=== PATIENT | male | born 1980 | race Caucasian/White ===

== ENCOUNTER 2018-10-14 04:00 | Observation (INO) ==
[2018-10-14] MEDS ORDERED: *HR* Dextrose 50 % in Water (Syg) 50 ML SYRINGE IVP ONE ×2 (04:19→04:52)
[2018-10-14] MEDS ORDERED: 0.9 % Sodium Chloride 1,000 ML IVC ONE (04:19)
[2018-10-14 04:26] LABS: Basophils # 0.1 K/mcL (0.0-0.2); Basophils % 0.4 %; Eosinophils # 0.2 K/mcL (0.0-0.6); Eosinophils % 1.4 %; Hematocrit 40.1 % (37.5-50.1); Hemoglobin 13.9 g/dL (12.9-16.9); Immature Granulocytes % 0.4 % (0-4); Lymphocytes # 3.4 K/mcL (0.6-4.6); Lymphocytes % 24.5 %; Mean Corpuscular HGB Conc 34.7 g/dL (31.6-35.5); Mean Corpuscular Hemoglobin 31.1 pg (28.0-33.3); Mean Corpuscular Volume 89.7 fL (83.0-100.0); Mean Platelet Volume 8.8 fL (9.4-12.4); Monocytes # 1.2 K/mcL (0.0-1.3); Monocytes % 8.7 %; Platelet Count 274 K/mcL (140-400); Red Blood Count 4.47 M/mcL (4.19-5.50); Segmented Neutrophils % 64.6 %
[2018-10-14 04:29] LABS: Bilirubin,Urine Negative (Negative); Blood,Urine Trace-intact (Negative); Clarity,Urine Clear (Clear); Color,Urine Yellow (Yellow); Glucose,Urine (UA) 100 mg/dL (Normal); Ketones,Urine Negative (Negative); Leukocyte Esterase,Urine Negative (Negative); Nitrite,Urine Negative (Negative); PH,Urine 5.5 pH Units (5.0-8.0); Protein,Urine Negative (Neg-Trace); Urobilinogen,Urine Normal (Normal)
[2018-10-14 04:35] LABS: Prothrombin Time 11.2 Seconds (9.4-12.1)
[2018-10-14 04:37] LABS: Activated Partial Thrombo Time 29.8 Seconds (26.0-36.0)
[2018-10-14 04:42] LABS: Amphetamine Screen,Urine Positive ng/mL (Cutoff=1000); Barbiturate Screen,Urine Negative ng/mL (Cutoff=200); Benzodiazepines Screen,Urine Negative ng/mL (Cutoff=200); Cannabinoid Screen,Urine Negative ng/mL (Cutoff = 50); Cocaine Screen,Urine Negative ng/mL (Cutoff= 300); Opiate Screen,Urine Negative ng/mL (Cutoff=300); Phencyclidine Screen,Urine Negative ng/mL (Cutoff=25)
[2018-10-14 04:45] LABS: Alanine Aminotransferase 85 Units/L (7-52); Albumin 3.9 g/dL (3.5-5.7); Albumin/Globulin Ratio 1.4 (1.1-2.2); Alkaline Phosphatase 138 Units/L (34-104); Aspartate Amino Transferase 63 Units/L (13-39); BUN/Creatinine Ratio 10 (6-26); Bilirubin,Direct 0.2 mg/dL (0.0-0.2); Bilirubin,Indirect 0.6 mg/dL (0.0-1.2); Bilirubin,Total 0.8 mg/dL (0.3-1.0); Blood Urea Nitrogen 9 mg/dL (6-20); Carbon Dioxide 28 mEq/L (23-29); Chloride 103 mEq/L (98-107); Ethanol < 10 mg/dL (Less than 10); Globulin 2.7 g/dL (2.4-3.5); Glucose 92 mg/dL (70-105); Osmolality,Calculated 284 (280-300); Potassium 3.3 mEq/L (3.5-5.1); Sodium 138 mEq/L (136-145); Total Protein 6.6 g/dL (6.4-8.9); eGFR For Non-African Americans > 60 (> 60)
[2018-10-14 04:46] LABS: Troponin I < 0.03 ng/mL (< 0.04)
[2018-10-14 04:53] LABS: Amorphous Sediment,Urine Many (Few)
--- NOTE | 2018-10-14 05:20 | Emergency Department Note ---
Disposition Clinical Impression: Hypoglycemia associated with diabetes, Drug abuse Disposition: Admitted As Inpatient Condition: Fair Referrals: NONE,PCP [Primary Care Provider] - Forms: ED Satisfaction Letter General Adult HPI - General Chief complaint: ED Seizure Stated complaint: unresponsive Source: family Mode of arrival: private vehicle Limitations: altered mental status Nursing Notes Reviewed: Yes Vital Signs Reviewed: Yes - History of Present Illness HPI Narrative: Patient is brought to the ED by family in private vehicle unresponsive. They stated his sugar was bottoming out. He is insulin-dependent diabetic and wears an insulin pump. A state his last sugar check at home was 21 and they disconnected his insulin pump before rushing in to the ED. Patient's son states he picked him up for around 1:30 AM and he was acting strange and seemed to be falling asleep. They went to [facility] and he was slow while walking around. When they got home he had decreasing responsiveness they could not get him up. That is when they checked his sugar and then worsened to the ED. They are not aware of anything else going on with the patient. Patient arrives minimally responsive but breathing with a steady pulse. He is cool and diaphoretic. Pain Scale: 0 - Related Data Home Medications Medication Instructions Recorded Confirmed Insulin ASPART [NovoLOG] 0 unit SQ PRN PRN 04/28/16 10/14/18 Lisinopril [Zestril] 20 mg PO BID 04/28/16 10/14/18 Previous Rx's Medication Instructions Recorded Pen Needle, Diabetic [Comfort Ez] 1 each MC 5XD #100 dis.needle 06/05/16 Allergies Allergy/AdvReac Type Severity Reaction Status Date / Time No Known Allergies Allergy Verified 04/17/18 16:31 Limitations: ROS unobtainable due to patients medical condition Past Medical History - Past Medical History Medical history: Reports: asthma, diabetes, hypertension Surgical history: Reports: no surgical history Psychiatric history: Reports: no psych history - Social History Smoking Status: Current every day smoker Smokeless Tobacco Status: No Alcohol use: Reports: none Drug use: Reports: none Physical Exam - General Limitations: altered mental status General appearance: lethargic - Head Head exam: atraumatic, normocephalic, normal inspection - Eye Eye exam: Present: normal appearance, PERRL, EOMI - ENT ENT exam: normal exam, normal oropharynx, mucous membranes moist - Neck Neck exam: Present: normal inspection, full ROM, trachea midline - Chest Chest inspection: Present: normal inspection, symmetric chest wall rise - Respiratory Respiratory exam: Present: normal lung sounds bilaterally - Cardiovascular Cardiovascular exam: Present: regular rate, normal rhythm, normal heart sounds - Abdominal Exam Abdominal exam: Present: soft, Non-Tender. Absent: tenderness, distention, gua rding, rebound, rigidity - Extremities Exam Extremities exam: Present: normal inspection, full ROM, normal capillary refill. Absent: tenderness, pedal edema - Skin Skin exam: Present: intact, diaphoresis, pallor Course Course Narrative: Agent presents to the ED with report of a blood glucose of 21 at home and minimally responsive. IV access was obtained and he was neatly given an amp of D50. Fingerstick glucose obtained within 1-2 minutes after receiving D50 gave her reading of 276. 7 minutes later repeat glucose was 180. Patient started waking up and would follow commands a squeezing my hand but remained obtunded and shivering and would not answer questions. Heart rate was regular in the 70s but initial blood pressure was elevated. Initial physical exam is unremarkable other than his altered mentation. Laboratory studies were drawn, IV fluids were started and patient was catheterized for a urine sample. Presents blood sugar reading was 119. Patient began becoming more responsive started answering questions and being cooperative with physical exam. He repeatedly complained of feeling cold initially. He now also complains of some right flank pain. Pat leatha denies any abdominal pain, nausea, vomiting, diarrhea or constipation. He does report shortness of breath but denies any chest pain. He has not recently fallen or struck his head. On repeated questioning he denied any drug use. Does admit to not taking his blood pressure medicine in the past few days. States he is also not checked his sugar in the past few days. He states he cannot remember anything that happened earlier today. He does not recall going to work. Denies any history of seizures. - Reevaluation(s) Reevaluation #1: Urinalysis shows only trace blood and glucose. Urine drug screen is positive for oxycodone and methamphetamines. When questioned about this patient states he does not remember taking any drugs today. He again states he cannot remember anything about the day. Glucose dropped down to 40 and he was given a second amp of D50 with improvement to 135. IV fluids are being continued and he is now going to CT scan. Lab work shows a mild leukocytosis as well as mildly elevated LFTs but normal electrolytes. Lactic acid is normal. I briefly reviewed his records and saw that in October 2017 while being seen for respiratory symptoms he did have a drug screen that was positive for oxycodone, opiates and methamp hetamines. Time: 05:15 Reevaluation #2: Glucose is down to 103. Will attempt to feed the patient. We will start D5NS if sugar continues to drop. I updated the family and asked if they had any additional information on the patient. They deny that he takes any long-acting insulin or has had any recent illness or antibiotic use. His parents state that he has been known to use drugs in the past but they do not know which ones. We will continue to monitor sugars closely. Awaiting CT results. Will obtain EKG as well. Time: 05:30 Reevaluation #3: EKG showed a sinus rhythm with no ischemic changes. Head CT is normal. Last glucose was 103. Patient has since had juice and peanut butter and crackers. We will continue to monitor sugars closely. Time: 05:53 Additional Reevaluation(s): 06:23 - last glucose is 178. I feel patient would benefit from overnight observation for continued close monitoring of his sugars and eventual reinit iation of his insulin pump. Discussed all test results and plan for admission with the patient and he is in agreement. I spoke to the hospitalist telephone maintainer, Dr. Meyer, who has agreed to admit the patient. Vital Signs O2 Sat by Pulse Oximetry 99 10/14/18 04:00 Temperature 96.3 F L 10/14/18 04:06 Pulse Rate 88 10/14/18 06:32 Respiratory Rate 16 10/14/18 06:32 Blood Pressure 125/68 10/14/18 06:32 O2 Sat by Pulse Oximetry 95 10/14/18 06:32 Oxygen Delivery Oxygen Delivery Room Air Medical Decision Making - Medical Records Medical records reviewed: Yes I reviewed the patient's medical records. - Lab Data Lab results reviewed: Yes I reviewed the patient's lab results. Result diagrams: 10/14/18 04:24 10/14/18 04:24 Lab Results 10/14/18 10/14/18 10/14/18 Range/Units 04:15 04:24 04:24 WBC (4.3-11.1) K/mcL RBC (4.19-5.50) M/mcL Hgb (12.9-16.9) g/dL Hct (37.5-50.1) % MCV (83.0-100.0) fL MCH (28.0-33.3) pg MCHC (31.6-35.5) g/dL RDW (11.5-14.5) % Plt Count (140-400) K/mcL MPV (9.4-12.4) fL Immature Gran % (0-4) % Seg Neutrophils % % Lymphocytes % % Monocytes % % Eosinophils % % Basophils % % Neutrophils # (1.6-8.9) K/mcL Lymphocytes # (0.6-4.6) K/mcL Monocytes # (0.0-1.3) K/mcL Eosinophils # (0.0-0.6) K/mcL Basophils # (0.0-0.2) K/mcL PT (9.4-12.1) Seconds INR APTT (26.0-36.0) Seconds Sodium (136-145) mEq/L Potassium (3.5-5.1) mEq/L Chloride (98-107) mEq/L Carbon Dioxide (23-29) mEq/L BUN (6-20) mg/dL Creatinine (0.70-1.30) mg/dL Est GFR ( Amer) (> 60) Est GFR (Non-Af Amer) (> 60) BUN/Creatinine Ratio (6-26) Glucose (70-105) mg/dL POC Glucose 119 H (70-99) mg/dL Calculated Osmolality (280-300) Lactic Acid (0.5-2.2) mmol/L Calcium (8.6-10.3) mg/dL Total Bilirubin (0.3-1.0) mg/dL Direct Bilirubin (0.0-0.2) mg/dL Indirect Bilirubin (0.0-1.2) mg/dL AST (13-39) Units/L ALT (7-52) Units/L Alkaline Phosphatase (34-104) Units/L Troponin I (< 0.04) ng/mL Serum Total Protein (6.4-8.9) g/dL Albumin (3.5-5.7) g/dL Globulin (2.4-3.5) g/dL Albumin/Globulin Ratio (1.1-2.2) Urine Color Yellow (Yellow) Urine Clarity Clear (Clear) Urine pH 5.5 (5.0-8.0) pH Units Ur Specific [place] 1.020 (1.010-1.025) Urine Protein Negative (Neg-Trace) mg/dL Urine Glucose (UA) 100 H (Normal) mg/dL Urine Ketones Negative (Negative) mg/dL Urine Blood Trace-intact H (Negative) Urine Nitrite Negative (Negative) Urine Bilirubin Negative (Negative) Urine Urobilinogen Normal (Normal) mg/dL Ur Leukocyte Esterase Negative (Negative) Amorphous Sediment Many H (Few) Ur Culture Indicated? NO (NO) Urine Opiates Screen Negative (Eniwre=603) ng/mL Ur Oxycodone Screen Positive H (Cutoff= 100) ng/mL Ur Barbiturates Screen Negative (Nrolrg=490) ng/mL Ur Phencyclidine Scrn Negative (Cutoff=25) ng/mL Ur Amphetamines Screen Positive H (Qjcdts=1118) ng/mL U Benzodiazepines Scrn Negative (Xhkvhm=564) ng/mL Urine Cocaine Screen Negative (Cutoff= 300) ng/mL U Marijuana (THC) Screen Negative (Cutoff = 50) ng/mL Ur Drug Screen Interp See Below Ethyl Alcohol (Less than 10) mg/dL 10/14/18 10/14/18 10/14/18 Range/Units 04:24 04:24 04:24 WBC 14.0 H (4.3-11.1) K/mcL RBC 4.47 (4.19-5.50) M/mcL Hgb 13.9 (12.9-16.9) g/dL Hct 40.1 (37.5-50.1) % MCV 89.7 (83.0-100.0) fL MCH 31.1 (28.0-33.3) pg MCHC 34.7 (31.6-35.5) g/dL RDW 15.0 H (11.5-14.5) % Plt Count 274 (140-400) K/mcL MPV 8.8 L (9.4-12.4) fL Immature Gran % 0.4 (0-4) % Seg Neutrophils % 64.6 % Lymphocytes % 24.5 % Monocytes % 8.7 % Eosinophils % 1.4 % Basophils % 0.4 % Neutrophils # 9.0 H (1.6-8.9) K/mcL Lymphocytes # 3.4 (0.6-4.6) K/mcL Monocytes # 1.2 (0.0-1.3) K/mcL Eosinophils # 0.2 (0.0-0.6) K/mcL Basophils # 0.1 (0.0-0.2) K/mcL PT 11.2 (9.4-12.1) Seconds INR 1.0 APTT 29.8 (26.0-36.0) Seconds Sodium 138 (136-145) mEq/L Potassium 3.3 L (3.5-5.1) mEq/L Chloride 103 (98-107) mEq/L Carbon Dioxide 28 (23-29) mEq/L BUN 9 (6-20) mg/dL Creatinine 0.87 (0.70-1.30) mg/dL Est GFR ( Amer) > 60 (> 60) Est GFR (Non-Af Amer) > 60 (> 60) BUN/Creatinine Ratio 10 (6-26) Glucose 92 (70-105) mg/dL POC Glucose (70-99) mg/dL Calculated Osmolality 284 (280-300) Lactic Acid (0.5-2.2) mmol/L Calcium 9.0 (8.6-10.3) mg/dL Total Bilirubin 0.8 (0.3-1.0) mg/dL Direct Bilirubin 0.2 (0.0-0.2) mg/dL Indirect Bilirubin 0.6 (0.0-1.2) mg/dL AST 63 H (13-39) Units/L ALT 85 H (7-52) Units/L Alkaline Phosphatase 138 H (34-104) Units/L Troponin I < 0.03 (< 0.04) ng/mL Serum Total Protein 6.6 (6.4-8.9) g/dL Albumin 3.9 (3.5-5.7) g/dL Globulin 2.7 (2.4-3.5) g/dL Albumin/Globulin Ratio 1.4 (1.1-2.2) Urine Color (Yellow) Urine Clarity (Clear) Urine pH (5.0-8.0) pH Units Ur Specific [place] (1.010-1.025) Urine Protein (Neg-Trace) mg/dL Urine Glucose (UA) (Normal) mg/dL Urine Ketones (Negative) mg/dL Urine Blood (Negative) Urine Nitrite (Negative) Urine Bilirubin (Negative) Urine Urobilinogen (Normal) mg/dL Ur Leukocyte Esterase (Negative) Amorphous Sediment (Few) Ur Culture Indicated? (NO) Urine Opiates Screen (Aasxmt=986) ng/mL Ur Oxycodone Screen (Cutoff= 100) ng/mL Ur Barbiturates Screen (Qvbxvv=204) ng/mL Ur Phencyclidine Scrn (Cutoff=25) ng/mL Ur Amphetamines Screen (Gvyxbs=3039) ng/mL U Benzodiazepines Scrn (Mapzsd=657) ng/mL Urine Cocaine Screen (Cutoff= 300) ng/mL U Marijuana (THC) Screen (Cutoff = 50) ng/mL Ur Drug Screen Interp Ethyl Alcohol < 10 (Less than 10) mg/dL 10/14/18 10/14/18 10/14/18 Range/Units 04:24 04:50 05:06 WBC (4.3-11.1) K/mcL RBC (4.19-5.50) M/mcL Hgb (12.9-16.9) g/dL Hct (37.5-50.1) % MCV (83.0-100.0) fL MCH (28.0-33.3) pg MCHC (31.6-35.5) g/dL RDW (11.5-14.5) % Plt Count (140-400) K/mcL MPV (9.4-12.4) fL Immature Gran % (0-4) % Seg Neutrophils % % Lymphocytes % % Monocytes % % Eosinophils % % Basophils % % Neutrophils # (1.6-8.9) K/mcL Lymphocytes # (0.6-4.6) K/mcL Monocytes # (0.0-1.3) K/mcL Eosinophils # (0.0-0.6) K/mcL Basophils # (0.0-0.2) K/mcL PT (9.4-12.1) Seconds INR APTT (26.0-36.0) Seconds Sodium (136-145) mEq/L Potassium (3.5-5.1) mEq/L Chloride (98-107) mEq/L Carbon Dioxide (23-29) mEq/L BUN (6-20) mg/dL Creatinine (0.70-1.30) mg/dL Est GFR ( Amer) (> 60) Est GFR (Non-Af Amer) (> 60) BUN/Creatinine Ratio (6-26) Glucose (70-105) mg/dL POC Glucose 40 L* 135 H (70-99) mg/dL Calculated Osmolality (280-300) Lactic Acid 1.4 (0.5-2.2) mmol/L Calcium (8.6-10.3) mg/dL Total Bilirubin (0.3-1.0) mg/dL Direct Bilirubin (0.0-0.2) mg/dL Indirect Bilirubin (0.0-1.2) mg/dL AST (13-39) Units/L ALT (7-52) Units/L Alkaline Phosphatase (34-104) Units/L Troponin I (< 0.04) ng/mL Serum Total Protein (6.4-8.9) g/dL Albumin (3.5-5.7) g/dL Globulin (2.4-3.5) g/dL Albumin/Globulin Ratio (1.1-2.2) Urine Color (Yellow) Urine Clarity (Clear) Urine pH (5.0-8.0) pH Units Ur Specific [place] (1.010-1.025) Urine Protein (Neg-Trace) mg/dL Urine Glucose (UA) (Normal) mg/dL Urine Ketones (Negative) mg/dL Urine Blood (Negative) Urine Nitrite (Negative) Urine Bilirubin (Negative) Urine Urobilinogen (Normal) mg/dL Ur Leukocyte Esterase (Negative) Amorphous Sediment (Few) Ur Culture Indicated? (NO) Urine Opiates Screen (Cruppw=190) ng/mL Ur Oxycodone Screen (Cutoff= 100) ng/mL Ur Barbiturates Screen (Yhfmgd=139) ng/mL Ur Phencyclidine Scrn (Cutoff=25) ng/mL Ur Amphetamines Screen (Kiykyk=2919) ng/mL U Benzodiazepines Scrn (Vfobwg=892) ng/mL Urine Cocaine Screen (Cutoff= 300) ng/mL U Marijuana (THC) Screen (Cutoff = 50) ng/mL Ur Drug Screen Interp Ethyl Alcohol (Less than 10) mg/dL 10/14/18 Range/Units 05:25 WBC (4.3-11.1) K/mcL RBC (4.19-5.50) M/mcL Hgb (12.9-16.9) g/dL Hct (37.5-50.1) % MCV (83.0-100.0) fL MCH (28.0-33.3) pg MCHC (31.6-35.5) g/dL RDW (11.5-14.5) % Plt Count (140-400) K/mcL MPV (9.4-12.4) fL Immature Gran % (0-4) % Seg Neutrophils % % Lymphocytes % % Monocytes % % Eosinophils % % Basophils % % Neutrophils # (1.6-8.9) K/mcL Lymphocytes # (0.6-4.6) K/mcL Monocytes # (0.0-1.3) K/mcL Eosinophils # (0.0-0.6) K/mcL Basophils # (0.0-0.2) K/mcL PT (9.4-12.1) Seconds INR APTT (26.0-36.0) Seconds Sodium (136-145) mEq/L Potassium (3.5-5.1) mEq/L Chloride (98-107) mEq/L Carbon Dioxide (23-29) mEq/L BUN (6-20) mg/dL Creatinine (0.70-1.30) mg/dL Est GFR ( Amer) (> 60) Est GFR (Non-Af Amer) (> 60) BUN/Creatinine Ratio (6-26) Glucose (70-105) mg/dL POC Glucose 103 H (70-99) mg/dL Calculated Osmolality (280-300) Lactic Acid (0.5-2.2) mmol/L Calcium (8.6-10.3) mg/dL Total Bilirubin (0.3-1.0) mg/dL Direct Bilirubin (0.0-0.2) mg/dL Indirect Bilirubin (0.0-1.2) mg/dL AST (13-39) Units/L ALT (7-52) Units/L Alkaline Phosphatase (34-104) Units/L Troponin I (< 0.04) ng/mL Serum Total Protein (6.4-8.9) g/dL Albumin (3.5-5.7) g/dL Globulin (2.4-3.5) g/dL Albumin/Globulin Ratio (1.1-2.2) Urine Color (Yellow) Urine Clarity (Clear) Urine pH (5.0-8.0) pH Units Ur Specific [place] (1.010-1.025) Urine Protein (Neg-Trace) mg/dL Urine Glucose (UA) (Normal) mg/dL Urine Ketones (Negative) mg/dL Urine Blood (Negative) Urine Nitrite (Negative) Urine Bilirubin (Negative) Urine Urobilinogen (Normal) mg/dL Ur Leukocyte Esterase (Negative) Amorphous Sediment (Few) Ur Culture Indicated? (NO) Urine Opiates Screen (Hokvra=439) ng/mL Ur Oxycodone Screen (Cutoff= 100) ng/mL Ur Barbiturates Screen (Bdbdsa=586) ng/mL Ur Phencyclidine Scrn (Cutoff=25) ng/mL Ur Amphetamines Screen (Nereuu=9234) ng/mL U Benzodiazepines Scrn (Njqegi=307) ng/mL Urine Cocaine Screen (Cutoff= 300) ng/mL U Marijuana (THC) Screen (Cutoff = 50) ng/mL Ur Drug Screen Interp Ethyl Alcohol (Less than 10) mg/dL - Radiology Data Radiology results reviewed: Yes I reviewed the patient's radiology results. ITS Impressions Chest X-Ray 10/14/18 04:19 IMPRESSION: No acute findings. D/ / Moiz Rodriguez / Moiz Rodriguez Interpreting Provider: Moiz Rodriguez Head CT 10/14/18 04:20 IMPRESSION: No acute intracranial abnormality. D/ / Moiz Rodriguez / Moiz Rodriguez Interpreting Provider: Moiz Rodriguez - EKG Data EKG #1 EKG attestation: Yes I reviewed and interpreted this EKG. EKG shows normal: sinus rhythm Rate: normal Rhythm: NSR [place]/QRS: normal Interpretation: no acute changes, normal EKG
[2018-10-14] MEDS ORDERED: Dextrose Gel 15 GM/37.5 ML TUBE PO PRN ×4 (06:37→07:47)
[2018-10-14] MEDS ORDERED: D5% in Water 1,000 ML IVC PRN ×2 (06:37→07:47)
[2018-10-14] MEDS ORDERED: *HR* Dextrose 50 % in Water (Syg) 50 ML SYRINGE IVP PRN ×2 (06:37→07:47)
[2018-10-14] MEDS ORDERED: Insulin LISPRO 300 UNITS/3 ML VIAL SQ SCH ×3 (07:30→21:00)
[2018-10-14] MEDS: Insulin LISPRO 300 UNITS/3 ML VIAL SQ SCH ×7 (10:02→21:29)
[2018-10-14] MEDS: Lisinopril 20 MG TABLET PO SCH ×2 (10:04→20:56)
[2018-10-14 10:27] LABS: Hepatitis B Surface Antigen Nonreactive (Nonreactive)
[2018-10-14 10:56] LABS: Hepatitis B Core IgM Nonreactive (Nonreactive); Hepatitis C Virus Antibody Nonreactive (Nonreactive)
[2018-10-14 10:58] LABS: Hepatitis A Antibody IgM Nonreactive (Nonreactive)
--- NOTE | 2018-10-14 13:49 | Internal Med History&Physical ---
Date of Encounter: 10/14/18 Time of Encounter: 12:25 Assessment and Plan (1) Hypoglycemia associated with diabetes Current visit: Yes Status: Acute Blood sugar has returned to satisfactory range. Monitoring will be continued. (2) Hypokalemia Current visit: Yes Status: Acute Supplemental potassium will be given. (3) Leukocytosis Current visit: No Status: Acute No left shift on differential is seen. CBC will be rechecked in a.m. Qualifiers: Leukocytosis type: unspecified Qualified Code(s): D72.829 - Elevated white blood cell count, unspecified (4) Drug abuse Current visit: Yes Status: Acute No evidence of withdrawal at present time. Continue to monitor. (5) HTN (hypertension) Current visit: No Status: Acute Continue lisinopril and monitor blood pressure. Qualifiers: Hypertension type: essential hypertension Qualified Code(s): I10 - Essential (primary) hypertension Internal Medicine - H&P: HPI Chief complaint: Hypoglycemia Admitted From: Emergency Dept Plans for Post Hospital Care: Home History of present illness: Mr. Grady is a 38 year old male who was brought to emergency room by his son after he was found minimally responsive with confusion. Blood sugar was found to be 21. The son disconnected the patient's insulin pump prior to bringing him to the emergency room. The patient was evaluated and admitted to [facility] floor for ongoing care needs. The patient states he was diagnosed with DM type I at age 30. He reports an insulin pump was placed approximately 2012. He has not seen an modern and contemporary art curator in over one year. He has not followed with his PCP in over one year. He reports checking blood sugars at home generally 2 or more times daily with readings typically 150-250 mg/dl. Endocrine history is negative for known diabetes or thyroid disease. He admits he used street amphetamine and narcotics also yesterday. He cannot give a definite answer on how frequently he uses drugs of abuse. He states he was discharged from his most recent PCP practice because of missed appointments. Past Med Surg Social Fam HX - Past Medical History Medical history: asthma, diabetes, hypertension Psychiatric history: no psych history - Past Surgical History Surgical History: no surgical history Additional surgical history: RIGHT HAND FRACTURE REPAIR - Social History Smoking Status: Current every day smoker Smokeless Tobacco Status: No Alcohol use: none Drug use: none - Family History Father Family Member Ethnicity: Non- Living Status: Still Living Hx Family Cardiac Disorders: No Hx Family Respiratory Disorders: No Hx Family Cancer: No Hx Family GI Disorders: No Hx Family Endocrine Disorder: Yes Hx Family Neuromuscular Disorders: No Hx Family Neurologic Disorders: No Hx Family HEENT Disorders: No Hx Family Autoimmune Disorders: No Internal Medicine - H&P: Meds Insulin ASPART [NovoLOG] 0 unit SQ PRN PRN 04/28/16 [History] Lisinopril [Zestril] 20 mg PO BID 04/28/16 [History] Pen Needle, Diabetic [Comfort Ez] 1 each MC 5XD #100 dis.needle 06/05/16 [Rx] Allergy/AdvReac Type Severity Reaction Status Date / Time No Known Allergies Allergy Verified 04/17/18 16:31 All Systems PM: A 10-system review of systems was performed and is negative for pertinent findings except as documented above in the HPI. Review of systems: Gen.: He states his weight has been stable the past year Cardiovascular: He has history of hypertension but denies IA heart failure angina DVT or pulmonary embolus Respiratory: He has smoked since age 14 up to 2 packs per day. He denies chronic lung disease and does not use home oxygen GI: He denies disorders of his liver gallbladder or exocrine pancreas : He denies hematuria dysuria or kidney stones Neurologic: He denies large distribution strokes or seizures. Endocrine: As per history of present illness Hematology/oncology: He denies blood disorders cancers or anemia Psychiatric: He has anxiety and depression. He took Xanax at one time but has not had refills. He denies other mental health diagnosis. [place] skeletal: He reports remote right hand fracture. He denies gout or other bone joint or muscle disorders. - Constitutional Vitals: Temp Pulse Resp BP Pulse Ox 96.8 F L 72 18 126/64 96 10/14/18 10:23 10/14/18 10:23 10/14/18 10:23 10/14/18 10:23 10/14/18 10:23 Exam: Gen.: He is a well-developed lean male lying in bed who appears in no severe distress at present time HEENT: Head is atraumatic and normocephalic. Eyes: EOMI. There is no scleral icterus. Mouth: Mucosa is moist. Neck: Supple and nontender. There is no thyromegaly or adenopathy noted. Heart: Regular without murmurs gallops or ectopics Lungs: No wheezes or crackles are heard. Abdomen: Soft and nontender. No masses or guarding are noted. Extremities: There is no cyanosis edema or clubbing noted. Dorsalis pedis and posterior tibial pulses are 1-2 over 2 bilaterally. Neurologic: Mental status: He is talkative and a fair historian. He does not recall some details of his history. Cranial nerves: Smile is symmetric. Forehead wrinkles bilaterally. Tongue protrudes midline. EOMI. Motor: There is no pronator drift. Cerebellar: Finger to nose is intact bilaterally. Skin: Warm and dry Internal Med - H&P Results - Labs CBC & Chem 7: 10/14/18 04:24 10/14/18 04:24 Labs: Short CBC 10/14/18 Range/Units 04:24 WBC 14.0 H (4.3-11.1) K/mcL Hgb 13.9 (12.9-16.9) g/dL Hct 40.1 (37.5-50.1) % Plt Count 274 (140-400) K/mcL Neutrophils # 9.0 H (1.6-8.9) K/mcL BMP 10/14/18 04:24 Sodium 138 Potassium 3.3 L Chloride 103 Carbon Dioxide 28 BUN 9 Creatinine 0.87 Glucose 92 Calcium 9.0 Cardiac Enzymes 10/14/18 Range/Units 04:24 Troponin I < 0.03 (< 0.04) ng/mL Liver Function 10/14/18 Range/Units 04:24 Total Bilirubin 0.8 (0.3-1.0) mg/dL Direct Bilirubin 0.2 (0.0-0.2) mg/dL AST 63 H (13-39) Units/L ALT 85 H (7-52) Units/L Alkaline Phosphatase 138 H (34-104) Units/L Albumin 3.9 (3.5-5.7) g/dL Urine 10/14/18 Range/Units 04:24 Urine Color Yellow (Yellow) Urine Clarity Clear (Clear) Urine pH 5.5 (5.0-8.0) pH Units Ur Specific [place] 1.020 (1.010-1.025) Urine Protein Negative (Neg-Trace) mg/dL Urine Glucose (UA) 100 H (Normal) mg/dL - Impressions ITS Impressions Chest X-Ray 10/14/18 04:19 IMPRESSION: No acute findings. D/ / Moiz Rodriguez / Moiz Rodriguez Interpreting Provider: Moiz Rodriguez Head CT 10/14/18 04:20 IMPRESSION: No acute intracranial abnormality. D/ / Moiz Rodriguez / Moiz Rodriguez Interpreting Provider: Moiz Rodriguez
--- NOTE | 2018-10-14 14:55 | Electrocardiograph Report ---
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
[2018-10-14 17:09] LABS: Estimated Average Glucose 232 mg/dl; Hemoglobin A1C 9.7 %
[2018-10-15] MEDS: Insulin LISPRO 300 UNITS/3 ML VIAL SQ SCH ×2 (02:42→07:45)
[2018-10-15 05:26] LABS: Basophils # 0.1 K/mcL (0.0-0.2); Basophils % 0.5 %; Eosinophils % 1.3 %; Hematocrit 42.6 % (37.5-50.1); Hemoglobin 14.7 g/dL (12.9-16.9); Immature Granulocytes % 0.2 % (0-4); Lymphocytes % 26.4 %; Mean Corpuscular HGB Conc 34.5 g/dL (31.6-35.5); Mean Corpuscular Hemoglobin 30.6 pg (28.0-33.3); Mean Corpuscular Volume 88.8 fL (83.0-100.0); Monocytes # 0.6 K/mcL (0.0-1.3); Monocytes % 5.5 %; Neutrophils # 7.4 K/mcL (1.6-8.9); Platelet Count 319 K/mcL (140-400); Red Cell Distribution Width 15.2 % (11.5-14.5); Segmented Neutrophils % 66.1 %
[2018-10-15 05:40] LABS: Eosinophils # 0.2 K/mcL (0.0-0.6)
[2018-10-15 07:12] LABS: eGFR For Non-African Americans > 60 (> 60)
[2018-10-15 07:16] LABS: Alanine Aminotransferase 66 Units/L (7-52); Albumin 3.6 g/dL (3.5-5.7); Albumin/Globulin Ratio 1.3 (1.1-2.2); Alkaline Phosphatase 154 Units/L (34-104); Aspartate Amino Transferase 41 Units/L (13-39); BUN/Creatinine Ratio 21 (6-26); Bilirubin,Total 1.3 mg/dL (0.3-1.0); Blood Urea Nitrogen 21 mg/dL (6-20); Calcium 9.4 mg/dL (8.6-10.3); Carbon Dioxide 22 mEq/L (23-29); Chloride 103 mEq/L (98-107); Globulin 2.7 g/dL (2.4-3.5); Glucose 361 mg/dL (70-105); Osmolality,Calculated 294 (280-300); Potassium 4.3 mEq/L (3.5-5.1); Sodium 133 mEq/L (136-145); Total Protein 6.3 g/dL (6.4-8.9)
[2018-10-15] MEDS: Lisinopril 20 MG TABLET PO SCH (07:44)
[2018-10-15 07:49] VITALS: BP 105/60
--- NOTE | 2018-10-15 08:32 | Discharge Summary ---
Date of Encounter: 10/15/18 Time of Encounter: 08:20 - Discharge Diagnosis (1) Hypoglycemia associated with diabetes Priority: Primary Status: Resolved (2) Hypokalemia Priority: Secondary Status: Resolved (3) Leukocytosis Priority: Secondary Status: Resolved Qualifiers: Leukocytosis type: unspecified Qualified Code(s): D72.829 - Elevated white blood cell count, unspecified (4) Drug abuse Priority: Secondary Status: Acute (5) HTN (hypertension) Priority: Secondary Status: Chronic Qualifiers: Hypertension type: essential hypertension Qualified Code(s): I10 - Essential (primary) hypertension Hospital course: Mr. Grady is a 38 year old male who was brought to emergency room by his son after he was found minimally responsive with confusion. Blood sugar was found to be 21. The son disconnected the patient's insulin pump prior to bringing him to the emergency room. The patient was evaluated and admitted to [facility] for ongoing care needs. Initial orders were written by the emergency room physician. I saw him on October 14 and performed the history and physical. His blood sugar remained above 100 mg percent after arrival to [facility] floor. There was significant fluctuation overall. Hemoglobin A1c returned elevated at 9.7%. He felt improved when I saw him on October 15 and stable for discharge home. LFTs improved with AST 41 and ALT 66 on day of discharge. Bilirubin had risen to 1.3. His PCP can monitor LFTs and blood sugar. On October 15 he felt stable for discharge home. He will continue his insulin pump and blood glucose monitoring at home. I encouraged him to become a nonsmoker and discontinue use of illicit drugs. He will follow with a [facility] provider within 1 week. - Time Spent with Patient Total time spent providing and/or coordinating discharge services: - Discharge Medications Home Medications: Insulin ASPART [NovoLOG] 0 unit SQ PRN PRN 04/28/16 [History] Lisinopril [Zestril] 20 mg PO BID 04/28/16 [History] Pen Needle, Diabetic [Comfort Ez] 1 each MC 5XD #100 dis.needle 06/05/16 [Rx] Allergies/Adverse Reactions: Allergy/AdvReac Type Severity Reaction Status Date / Time No Known Allergies Allergy Verified 04/17/18 16:31 Date of admission: 10/14/18 06:46 Primary care physician: PCP NONE - Constitutional Vitals: Temp Pulse Resp BP Pulse Ox 98.2 F 59 14 105/60 95 10/15/18 07:47 10/15/18 07:47 10/15/18 07:47 10/15/18 07:47 10/15/18 07:47 - Patient Status Disposition: Home, Self-Care Condition: Fair - Discharge Instructions Follow Up With: NONE,PCP [Primary Care Provider] - 1 week - Diet and Activity Activity: resume usual activities as tolerated Diet: advance to your usual diet
== END 2018-10-15 10:02 | disposition home or self-care (01) ==
LOC: EMEROOPIK 04:00 → INPPIK 04:00
PROVIDERS: ADMIT Internal Medicine; ATTEND Internal Medicine

== ENCOUNTER 2019-02-22 15:17 | Observation (INO) ==
--- NOTE | 2019-02-22 15:26 | Emergency Department Note ---
Disposition Clinical Impression: Ketosis due to diabetes, Hyperglycemia Disposition: Admitted As Inpatient Condition: Good Time of Disposition: 17:00 General Adult HPI - General Chief complaint: ED General Medical Stated complaint: BLOOD SUGAR HIGH Time Seen by Provider: 02/22/19 15:17 Source: patient Mode of arrival: EMS Limitations: no limitations Nursing Notes Reviewed: Yes Vital Signs Reviewed: Yes - History of Present Illness HPI Narrative: Patient states his blood sugar is high he feels weak. He says his insulin pump broke this morning. Is unable to telemetry when he last checked his sugar other than this morning when it read high He has complained of a sore throat for the past week and has a rash on his chest Onset (ago): hour(s) (this AM) Consistency: constant Improves with: nothing Worsens with: nothing Associated symptoms: Reports: weakness Treatments Prior to Arrival: none - Related Data Home Medications Medication Instructions Recorded Confirmed Insulin ASPART [NovoLOG] 0 unit SQ TID PRN 04/28/16 02/22/19 Lisinopril [Zestril] 20 mg PO BID 04/28/16 02/22/19 Insulin ASPART [Novolog] 0 unit SQ AD 02/22/19 02/22/19 Previous Rx's Medication Instructions Recorded Pen Needle, Diabetic [Comfort Ez] 1 each MC 5XD #100 dis.needle 06/05/16 Allergies Allergy/AdvReac Type Severity Reaction Status Date / Time No Known Allergies Allergy Verified 04/17/18 16:31 All systems ED: reviewed and negative except as stated. Review of Systems: As Per HPI Constitutional: Denies: fever, chills, weakness, weight change Eyes: Denies: eye pain, eye discharge, vision change ENT ED: Denies: ear pain, throat pain, dental pain, hearing loss, epistaxis, congestion, dysphagia Cardiovascular: Denies: chest pain, palpitations, dyspnea on exertion, edema, syncope Respiratory: Denies: cough, dyspnea, wheezes, hemoptysis, stridor Gastrointestinal: Denies: abdominal pain, nausea, vomiting, diarrhea, constipation, hematemesis, melena, hematochezia Genitourinary: Denies: urgency, dysuria, frequency, hematuria Musculoskeletal: Denies: back pain, neck pain, arthralgia, myalgia Integumentary: Denies: rash, abrasion, lesions Neurological: Denies: headache, weakness, numbness, paresthesias, confusion, abnormal gait, vertigo Psychiatric: Denies: anxiety, depression, suicidal thoughts, homicidal thoughts, auditory hallucinations, visual hallucinations Endocrine: Denies: fatigue Hematological/Lymphatic: Denies: easy bleeding, easy bruising Allergic/Immunologic: Denies: facial swelling, urticaria Past Medical History - Past Medical History Attestation: Yes The following information was validated with the patient. Source: patient, nursing notes reviewed Medical history: Reports: asthma, diabetes, hypertension Surgical history: Reports: no surgical history Psychiatric history: Reports: no psych history - Social History Smoking Status: Current every day smoker Smokeless Tobacco Status: No Alcohol use: Reports: none Drug use: Reports: none Physical Exam - General Limitations: no limitations General appearance: alert, in no apparent distress - Head Head exam: atraumatic, normocephalic, normal inspection - Eye Eye exam: Present: normal appearance, PERRL, EOMI - ENT ENT exam: mucous membranes dry, other (erythema to posterior oropharynx. The architecture is normal there is no evidence of an abscess) - Neck Neck exam: Present: normal inspection, full ROM, trachea midline - Chest Chest inspection: Present: normal inspection, symmetric chest wall rise - Respiratory Respiratory exam: Present: normal lung sounds bilaterally - Cardiovascular Cardiovascular exam: Present: regular rate, normal rhythm, normal heart sounds - Abdominal Exam Abdominal exam: Present: soft - Extremities Exam Extremities exam: Present: normal inspection, full ROM. Absent: tenderness, pedal edema - Back Exam Back exam: Present: normal inspection, full ROM. Absent: tenderness - Neurological Exam Neurological exam: Present: alert, oriented X3 - Psychiatric Psychiatric exam: Present: normal affect, normal mood - Skin Skin exam: Present: warm, dry, intact, normal color Medical Decision Making - [facility] Narrative Medical decision making narrative: I reviewed the patient's medication list Case was discussed with Dr. Meyer who graciously accepts admission to the hospital - Lab Data Lab results reviewed: Yes I reviewed the patient's lab results. - Radiology Data Radiology results reviewed: Yes I reviewed the patient's radiology results.
[2019-02-22] MEDS ORDERED: Insulin Human Regular 10 UNIT in 0.9 % Sodium Chloride 10 ML IV ONE (15:27)
[2019-02-22 15:50] LABS: Bilirubin,Urine Negative (Negative); Blood,Urine Trace-intact (Negative); Clarity,Urine Clear (Clear); Color,Urine Yellow (Yellow); Glucose,Urine (UA) 500 mg/dL (Normal); Ketones,Urine 15 mg/dL (Negative); Leukocyte Esterase,Urine Negative (Negative); Nitrite,Urine Negative (Negative); PH,Urine 6.5 pH Units (5.0-8.0); Protein,Urine Negative (Neg-Trace); Urobilinogen,Urine Normal (Normal)
[2019-02-22 15:50] LABS: VBG HCO3 20 mEq/L (21-27); VBG PCO2 34 mmHg (41-51); VBG PH 7.37 pH Units (7.32-7.42); VBG PO2 73 mmHg (25-50)
[2019-02-22 15:51] LABS: Basophils # 0.1 K/mcL (0.0-0.2); Basophils % 0.5 %; Eosinophils # 0.1 K/mcL (0.0-0.6); Eosinophils % 1.2 %; Hematocrit 40.8 % (37.5-50.1); Hemoglobin 14.1 g/dL (12.9-16.9); Immature Granulocytes % 0.4 % (0-4); Lymphocytes % 20.9 %; Mean Corpuscular HGB Conc 34.6 g/dL (31.6-35.5); Mean Corpuscular Volume 92.5 fL (83.0-100.0); Mean Platelet Volume 9.4 fL (9.4-12.4); Monocytes # 0.5 K/mcL (0.0-1.3); Monocytes % 5.1 %; Neutrophils # 6.8 K/mcL (1.6-8.9); Platelet Count 250 K/mcL (140-400); Red Blood Count 4.41 M/mcL (4.19-5.50); Red Cell Distribution Width 12.9 % (11.5-14.5); Segmented Neutrophils % 71.9 %; White Blood Count 9.4 K/mcL (4.3-11.1)
[2019-02-22 15:56] LABS: Bacteria,Urine Few per hpf (None-Few); Mucus,Urine Few (Few); RBC,Urine 0-3 per hpf (0-3)
[2019-02-22] MEDS: 0.9 % Sodium Chloride 1,000 ML IVC SCH ×2 (16:18→16:46)
[2019-02-22 16:20] LABS: Alanine Aminotransferase 20 Units/L (7-52); Albumin 3.3 g/dL (3.5-5.7); Albumin/Globulin Ratio 1.2 (1.1-2.2); Alkaline Phosphatase 133 Units/L (34-104); Aspartate Amino Transferase 21 Units/L (13-39); BUN/Creatinine Ratio 28 (6-26); Bilirubin,Total 0.8 mg/dL (0.3-1.0); Blood Urea Nitrogen 30 mg/dL (6-20); Calcium 8.4 mg/dL (8.6-10.3); Carbon Dioxide 21 mEq/L (23-29); Chloride 92 mEq/L (98-107); Globulin 2.8 g/dL (2.4-3.5); Glucose 949 mg/dL (70-105); Osmolality,Calculated 309 (280-300); Potassium 5.9 mEq/L (3.5-5.1); Sodium 123 mEq/L (136-145); Total Protein 6.1 g/dL (6.4-8.9); eGFR For African Americans > 60 (> 60); eGFR For Non-African Americans > 60 (> 60)
[2019-02-22] MEDS ORDERED: Dextrose Gel 15 GM/37.5 ML TUBE PO PRN ×4 (17:52→19:34)
[2019-02-22] MEDS ORDERED: D5% in Water 1,000 ML IVC PRN ×2 (17:52→19:34)
[2019-02-22] MEDS ORDERED: Naloxone 0.4 MG/ML INJ IVP PRN (17:52)
[2019-02-22] MEDS ORDERED: *HR* Dextrose 50 % in Water (Vial) 50 ML VIAL IVP PRN (17:52)
[2019-02-22] MEDS ORDERED: *HR* Dextrose 50 % in Water (Syg) 50 ML SYRINGE IVP PRN (19:34)
[2019-02-22] MEDS ORDERED: Insulin LISPRO 300 UNITS/3 ML VIAL SQ SCH (21:00)
[2019-02-22] MEDS ORDERED: Insulin DETEMIR 100 UNIT/ML X5UNITS SQ SCH (21:00)
[2019-02-22] MEDS: Lisinopril 20 MG TABLET PO SCH (21:23)
[2019-02-22] MEDS: Insulin DETEMIR 100 UNIT/ML X5UNITS SQ SCH (21:24)
[2019-02-23 05:37] LABS: Basophils # 0.1 K/mcL (0.0-0.2); Basophils % 0.7 %; Eosinophils # 0.3 K/mcL (0.0-0.6); Eosinophils % 2.6 %; Hematocrit 41.8 % (37.5-50.1); Hemoglobin 14.7 g/dL (12.9-16.9); Immature Granulocytes % 0.3 % (0-4); Lymphocytes # 3.8 K/mcL (0.6-4.6); Lymphocytes % 36.9 %; Mean Corpuscular HGB Conc 35.2 g/dL (31.6-35.5); Mean Corpuscular Hemoglobin 31.6 pg (28.0-33.3); Mean Corpuscular Volume 89.9 fL (83.0-100.0); Mean Platelet Volume 8.8 fL (9.4-12.4); Monocytes # 0.6 K/mcL (0.0-1.3); Monocytes % 6.3 %; Neutrophils # 5.4 K/mcL (1.6-8.9); Platelet Count 291 K/mcL (140-400); Red Blood Count 4.65 M/mcL (4.19-5.50); Red Cell Distribution Width 12.8 % (11.5-14.5); Segmented Neutrophils % 53.2 %; White Blood Count 10.2 K/mcL (4.3-11.1)
[2019-02-23] MEDS ORDERED: Insulin LISPRO 300 UNITS/3 ML VIAL SQ SCH (07:30)
[2019-02-23] MEDS: Insulin LISPRO 300 UNITS/3 ML VIAL SQ SCH ×2 (07:53→11:50)
[2019-02-23] MEDS: Insulin DETEMIR 100 UNIT/ML X5UNITS SQ SCH (08:00)
[2019-02-23 08:46] LABS: BUN/Creatinine Ratio 24 (6-26); Blood Urea Nitrogen 21 mg/dL (6-20); Calcium 8.7 mg/dL (8.6-10.3); Carbon Dioxide 27 mEq/L (23-29); Chloride 104 mEq/L (98-107); Glucose 126 mg/dL (70-105); Osmolality,Calculated 291 (280-300); Potassium 3.8 mEq/L (3.5-5.1); Sodium 138 mEq/L (136-145); eGFR For African Americans > 60 (> 60); eGFR For Non-African Americans > 60 (> 60)
[2019-02-23] MEDS: Lisinopril 20 MG TABLET PO SCH (10:57)
--- NOTE | 2019-02-23 11:24 | Internal Med History&Physical ---
Date of Encounter: 02/23/19 Time of Encounter: 10:50 Assessment and Plan (1) Hyperglycemia Current visit: Yes Status: Acute Now resolved. I told him he will need to establish with a PCP and return to his quality head for close diabetic monitoring. Diabetic teaching will be done. Social service will be contacted to assist in obtaining insulin since he reports he is indigent. Internal Medicine - H&P: HPI Chief complaint: Hyperglycemia Admitted From: Emergency Dept Plans for Post Hospital Care: Home History of present illness: Mr. Grady is a 38 year old male who came to emergency room when his mother noted he appeared lethargic at home. A blood sugar reading registered "high". He was evaluated in emergency room was found to have blood sugar of 949 MG/DL. He had hyponatremia and ketosis. He was admitted to [facility] floor for ongoing care needs. He reports being diagnosed with DM 1 at age 30. He reports an insulin pump was placed approximately 2012. He has not seen his quality head in [place] in over a year. He was hospitalized at [facility] for hypoglycemia October 2018. He did not follow-up with a PCP as directed. He reports his insulin pump broke yesterday causing the hyperglycemia. He admits he does not follow a diabetic diet at all and he checks blood sugars only approximately once weekly. Endocrine history is negative for known diabetes or thyroid disease. Past Med Surg Social Fam HX - Past Medical History Medical history: asthma, diabetes, hypertension Psychiatric history: no psych history - Past Surgical History Surgical History: no surgical history Additional surgical history: RIGHT HAND FRACTURE REPAIR - Social History Smoking Status: Current every day smoker Smokeless Tobacco Status: No Alcohol use: rarely Drug use: none - Family History Father Family Member Ethnicity: Non- Living Status: Still Living Hx Family Cardiac Disorders: No Hx Family Respiratory Disorders: No Hx Family Cancer: No Hx Family GI Disorders: No Hx Family Endocrine Disorder: Yes Hx Family Neuromuscular Disorders: No Hx Family Neurologic Disorders: No Hx Family HEENT Disorders: No Hx Family Autoimmune Disorders: No Internal Medicine - H&P: Meds Insulin ASPART [NovoLOG] 0 unit SQ TID PRN 04/28/16 [History] Lisinopril [Zestril] 20 mg PO BID 04/28/16 [History] Pen Needle, Diabetic [Comfort Ez] 1 each MC 5XD #100 dis.needle 06/05/16 [Rx] Insulin ASPART [Novolog] 0 unit SQ AD 02/22/19 [History] Allergy/AdvReac Type Severity Reaction Status Date / Time No Known Allergies Allergy Verified 04/17/18 16:31 All Systems PM: A 10-system review of systems was performed and is negative for pertinent findings except as documented above in the HPI. Review of systems: Review of systems from his October 2018 [facility] hospitalization were reviewed and revised as below. Gen.: His weight has been stable at approximately 63 kg since October 2018 [facility] hospitalization. Cardiovascular: He has history of hypertension but denies VT heart failure angina DVT or pulmonary embolus Respiratory: He has smoked since age 14 up to 2 packs per day. He denies chronic lung disease and does not use home oxygen GI: He denies disorders of his liver gallbladder or exocrine pancreas : He denies hematuria dysuria or kidney stones Neurologic: He denies large distribution strokes or seizures. Endocrine: As per history of present illness Hematology/oncology: He denies blood disorders cancers or anemia Psychiatric: He has anxiety and depression. He took Xanax at one time but has not had refills. He denies other mental health diagnosis. [place] skeletal: He reports remote right hand fracture. He denies gout or other bone joint or muscle disorders. - Constitutional Vitals: Temp Pulse Resp BP Pulse Ox 98.4 F 59 16 119/74 95 02/23/19 06:55 02/23/19 06:55 02/23/19 06:55 02/23/19 06:55 02/23/19 06:55 Exam: Gen.: He is a well-developed well-nourished male lying in bed who appears in no acute distress HEENT: Head is atraumatic and normocephalic. Eyes: EOMI. There is no scleral icterus. Mouth: Mucosa is moist. Neck: Supple and nontender. There is no thyromegaly or adenopathy noted. Heart: Regular without murmurs gallops or ectopics Lungs: No wheezes or crackles are heard. Abdomen: Soft and nontender. No masses or guarding are noted. Extremities: There is no cyanosis edema or clubbing noted. Dorsalis pedis and posterior tibial pulses are 1-2 over 2 bilaterally. Neurologic: Mental status: He is talkative and a good historian. Cranial nerves: Smile is symmetric. Forehead wrinkles bilaterally. Tongue protrudes midline. EOMI. Motor: There is no pronator drift. Cerebellar: Finger to nose is intact bilaterally. Skin: Warm and dry Internal Med - H&P Results - Labs CBC & Chem 7: 02/23/19 05:11 02/23/19 05:11 Labs: Short CBC 02/22/19 02/23/19 Range/Units 15:40 05:11 WBC 9.4 10.2 (4.3-11.1) K/mcL Hgb 14.1 14.7 (12.9-16.9) g/dL Hct 40.8 41.8 (37.5-50.1) % Plt Count 250 291 (140-400) K/mcL Neutrophils # 6.8 5.4 (1.6-8.9) K/mcL BMP 02/22/19 02/23/19 15:40 05:11 Sodium 123 L 138 D Potassium 5.9 H 3.8 D Chloride 92 L 104 Carbon Dioxide 21 L 27 BUN 30 H 21 H Creatinine 1.08 0.87 Glucose 949 H* 126 H Calcium 8.4 L 8.7 Liver Function 02/22/19 Range/Units 15:40 Total Bilirubin 0.8 (0.3-1.0) mg/dL AST 21 (13-39) Units/L ALT 20 (7-52) Units/L Alkaline Phosphatase 133 H (34-104) Units/L Albumin 3.3 L (3.5-5.7) g/dL Urine 02/22/19 Range/Units 15:30 Urine Color Yellow (Yellow) Urine Clarity Clear (Clear) Urine pH 6.5 (5.0-8.0) pH Units Ur Specific [place] 1.010 (1.010-1.025) Urine Protein Negative (Neg-Trace) mg/dL Urine Glucose (UA) 500 H (Normal) mg/dL - ABG Interpretation ABG results: 02/22/19 15:47 VBG pH 7.37 VBG pCO2 34 L VBG pO2 73 H VBG HCO3 20 L
--- NOTE | 2019-02-23 14:27 | Discharge Summary ---
Orders not resulted at time of discharge: Pending orders 02/22/19 15:30 Culture,Urine [RM] Stat 02/24/19 04:00 Beta-Hydroxybutyric Acid AM 0400 Hgb A1C AM 0400 Lipid Panel AM 0400 Magnesium AM 0400 Phosphorous AM 0400 Thyroid Stimulating Hormone AM 0400 Date of Encounter: 02/23/19 Time of Encounter: 14:22 - Discharge Diagnosis (1) Hyperglycemia Priority: Primary Status: Acute (2) DM type 1 (diabetes mellitus, type 1) Priority: Secondary Status: Acute Qualifiers: Diabetes mellitus complication status: without complication Qualified Code(s): E10.9 - Type 1 diabetes mellitus without complications Hospital course: Mr. Grady is a 38 year old male who came to emergency room when his mother noted he appeared lethargic at home. A blood sugar reading registered "high". He was evaluated in emergency room and was found to have blood sugar of 949 MG/DL. He had hyponatremia and ketosis. He was admitted to [facility] floor for ongoing care needs. Initial orders were written by the emergency room physician. I saw him on February 23 and performed a history and physical. He was started on subcutaneous basal insulin with SSI. Social service consult was done to assist in obtaining needed insulin and related diabetic supplies until establishment with PCP could be accomplished. After 2-3 hours of work by the social services aide arrangements were complete for him to receive NovoLog from indigent funding from [facility] and purchase Basaglar from a another local pharmacy. Diabetic teaching was ordered to be done. He had follow-up appointment arranged with Dylan Mccoy CNP. In the mid afternoon of February 23 it was noted the patient's room was empty. A search revealed no location of the patient and it was presumed he left before official discharge could be accomplished. He did not take prescriptions/medications with him. - Time Spent with Patient Total time spent providing and/or coordinating discharge services: - Discharge Medications Prescriptions: New Insulin LISPRO [HumaLOG] 5 units SQ TIDAC 30 Days units Insulin DETEMIR [Levemir] 10 unit SQ BID [id number] Continued Lisinopril [Zestril] 20 mg PO BID Insulin ASPART [NovoLOG] 0 unit SQ TID PRN PRN Reason: CARB COUNT Pen Needle, Diabetic [Comfort Ez] 1 each MC 5XD #100 dis.needle Insulin ASPART [Novolog] 0 unit SQ AD Home Medications: Insulin ASPART [NovoLOG] 0 unit SQ TID PRN 04/28/16 [History] Lisinopril [Zestril] 20 mg PO BID 04/28/16 [History] Pen Needle, Diabetic [Comfort Ez] 1 each MC 5XD #100 dis.needle 06/05/16 [Rx] Insulin ASPART [Novolog] 0 unit SQ AD 02/22/19 [History] Insulin DETEMIR [Levemir] 10 unit SQ BID [id number] 02/23/19 [Rx] Insulin LISPRO [HumaLOG] 5 units SQ TIDAC 30 Days units 02/23/19 [Rx] Allergies/Adverse Reactions: Allergy/AdvReac Type Severity Reaction Status Date / Time No Known Allergies Allergy Verified 04/17/18 16:31 Date of admission: 02/22/19 17:31 Primary care physician: Dylan Mccoy CNP Consults: 02/23/19 11:33 Consult to Diabetes Education [CONS] Routine Comment: Reason for Consult: DM 1 - Constitutional Vitals: Temp Pulse Resp BP Pulse Ox 98.2 F 68 15 120/75 96 02/23/19 12:07 02/23/19 12:07 02/23/19 12:07 02/23/19 12:07 02/23/19 12:07 - Patient Status Disposition: Left Against Medical Advice Condition: Good - Discharge Instructions Follow Up With: NONE,PCP [Primary Care Provider] - 1 week (DYLAN MCCOY CNP march 01 @ 104)
[2019-02-23 15:12] VITALS: BP 124/79
[2019-02-23] MEDS ORDERED: Insulin DETEMIR 100 UNIT/ML X5UNITS SQ SCH (21:00)
[2019-02-24] MEDS ORDERED: Lisinopril 20 MG TABLET PO SCH (09:00)
== END 2019-02-23 13:55 | disposition left against medical advice (07) ==
LOC: EMEROOPIK 15:17 → INPPIK 15:17
PROVIDERS: ADMIT Internal Medicine; ATTEND Internal Medicine